=== PATIENT | male | born 1995 | race Caucasian/White ===

== ENCOUNTER 2022-07-03 17:39 | Emergency (ER) | payer BC, SELFPAY ==
--- NOTE | ~2022-07-03 | XR_ITS ---
EXAMINATION: XR FOOT, RIGHT CLINICAL INFORMATION: Right foot injury. COMPARISON: None TECHNIQUE: AP, lateral, and oblique views of the right foot. FINDINGS: The bones and soft tissues are normal. No fracture. Alignment is anatomic. Joint spaces are maintained. XR/XR foot RT min 3V IMPRESSION: Normal right foot.
[2022-07-03 18:27] VITALS: BP 126/67; PULSE 90; RESP 18; TEMP 36.2; O2SAT 98; BMI 29.6
--- NOTE | 2022-07-03 19:22 | ED_ITS ---
HPI - General Adult General Chief complaint: Extremity Injury, Lower Stated complaint: Foot injury Time Seen by Provider: 07/03/22 19:22 Source: patient Mode of arrival: ambulatory Limitations: no limitations History of Present Illness HPI narrative: Patient is a 27 year old male presenting to the emergency department today with right foot pain. Patient states that he was working on a car last night when it fell on his right foot. Patient states that today it is more painful for him to walk on. Patient denies any dizziness, lightheadedness, abdominal pain, nausea, vomiting, fever, chills, blurry vision, double vision, loss of vision, chest pain, difficulty breathing, shortness of breath, back pain, night sweats, pain with urination, increased urinary frequency, increased urinary urgency, blood in hi urine or stool, syncope or a near syncopal episode, bowel incontinence, bladder incontinence, bowel retention, bladder retention, or any other complaints at this time. Onset (ago): day(s) (1) Location: right and lower extremity (foot) Radiation: non-radiation Severity: mild Severity scale (1-10): 2 Quality: aching and dull Pain Consistency: constant Relieving factors: none Exacerbating factors: movement Associated symptoms: denies other symptoms Treatments prior to arrival: none Related Data Allergies Allergy/AdvReac Type Severity Reaction Status Date / Time No Known Allergies Allergy Verified 07/03/22 18:27 Review of Systems Constitutional: Constitutional: Reports no additional constitutional complaints, Denies chills, Denies fever(s) and Denies night sweats Eyes: Eyes: Reports no additional eye complaints, Denies blurry vision, Denies change in vision, Denies diplopia, Denies eye discharge, Denies loss of vision and Denies eye pain ENT: Denies dizziness Cardiovascular: Cardiovascular: Reports no additional cardiovascular complaints, Denies chest pain, Denies lightheadedness, Denies Loss of Consciousness and Denies dyspnea Respiratory: Respiratory: Reports no additional respiratory complaints and Denies dyspnea Gastrointestinal: Gastrointestinal: Reports no additional gastrointestinal complaints, Denies abdominal pain, Denies melena, Denies hematochezia, Denies change in bowel habits and Denies change in stool character Genitourinary: Genitourinary: Reports no additional male genitourinary complaints, Denies hematuria, Denies oliguria, Denies difficulty urinating, Denies dysuria, Denies urinary frequency, Denies urinary hesitancy, Denies urinary incontinence and Denies urinary urgency Musculoskeletal: Musculoskeletal: Reports no additional musculoskeletal complaints, Denies numbness and Denies tingling Comments: right foot pain Neurologic: Denies dizziness, Denies loss of vision, Denies numbness and Denies tingling Psychiatric: Psychiatric: Reports no additional psychiatric complaints Endocrine: Endocrine: Reports no additional endocrine complaints Hematologic/Lymphatic: Hematologic/Lymphatic: Reports no additional hematologic/lymphatic complaints Allergic/Immunologic: Allergic/Immunologic: Reports no additional allergic/immunologic complaints [facility] Past Medical History Attestation statement: The following information was validated with the patient. Source: old records reviewed Social History Social History Advance Directives: No Advance Directives Information Provided: No Physical Exam ED Vital Signs: Vital Signs - 24 hr 07/03/22 18:27 Temperature 97.1 F Pulse Rate 90 Respiratory Rate 18 Blood Pressure 126/67 Pulse Oximetry 98 Oxygen Delivery Method Room Air BMI result Body Mass Index 29.6 Const General: cooperative, no acute distress, alert and awake Nutritional Appearance: well nourished Orientation/consciousness: patient oriented x3 Limitations: no limitations HENMT Head: Yes normal to inspection and Yes atraumatic Ears: hearing grossly normal bilaterally and external ears normal General nose exam: Normal external nose present, no nasal discharge noted and no epistaxis Face and sinus: Yes normal facial exam, No abrasion and No laceration Mouth: Normal oral and palatal mucosa present, no drooling and no muffled voice Eyes General: appearance normal, both eyes and all related structures Periorbital: periorbital findings normal Eyelids: Yes eyelids normal Conjunctivae: conjunctivae normal Pupils: Equal, round and reactive pupils present EOM: EOMs intact bilaterally Neck Neck: Yes normal visual inspection, Yes full ROM and Yes no lymphadenopathy Chest Chest palpation & inspection: normal inspection of the chest Resp Effort & Inspection: normal respiratory effort and able to speak in complete sentences Auscultation: clear to auscultation bilaterally Cardio Rate: regular rate Rhythm: regular rhythm GI Inspection: Yes normal to inspection Neuro General: patient oriented x3 and moves all extremities Cranial nerves: Yes Equal, round and reactive pupils present Cognition (Neuro): normal cognition Motor exam (neuro): 5/5 motor strength present throughout Sensory Exam: Normal double simultaneous stimulation for sensation Coordination: [id number] test normal Extrem General: Yes normal to inspection, Yes full ROM and Yes capillary refill normal Psych Appearance: grossly normal Mental Status: mental status grossly normal Affect: normal affect Attitude: cooperative Thought process: Normal thought process present Thought content: Normal thought content present Insight: Good insight present (Psych) Medical Decision Making MDM Narrative Medical decision making narrative: Patient is a 27 year old male presenting to the emergency department today with right foot pain. Patient's physical exam was unremarkable. Patient's right foot x-ray showed no acute process. I explained my physical exam findings as well as all test results to the patient. I answered all questions asked by the patient. I stressed the importance of the patient taking his medication as prescribed. I stressed the importance of the patient following up with his primary care provider and an orthopedic provider. I stressed the importance of the patient returning to the emergency department immediately if his symptoms were to worsen or if he were to develop any dizziness, shortness of breath, difficulty breathing, chest pain, blurry vision, loss of vision, nausea, vomiting, abdominal pain, fever, chills, back pain, or any other complaints. Patient verbalized agreement and understanding with this treatment plan and discharge. Medical Records Medical records reviewed: Yes I reviewed the patient's medical records. Imaging Data Right foot x-ray: Attestation: I personally reviewed and interpreted this imaging study as follows: My impression: No acute fracture. Radiologist's impression: EXAMINATION: XR FOOT, RIGHT CLINICAL INFORMATION: Right foot injury.? COMPARISON: None? TECHNIQUE: AP, lateral, and oblique views of the right foot. FINDINGS: The bones and soft tissues are normal. No fracture. Alignment is anatomic. Joint spaces are maintained.? XR/XR foot RT min 3V IMPRESSION: Normal right foot. Dictated By: Rahul Estrada MD Signed By: Electronically signed by Rahul Estrada MD 07/03/22 1160 Discharge Plan Discharge Clinical Impression: Acute foot pain Patient Disposition: Home, Self-Care Instructions: Crush Injury (ED) Additional Instructions: Follow up with your primary care provider and an orthopedic provider. Return to the emergency department immediately if your symptoms worsen or if you develop any dizziness, shortness of breath, difficulty breathing, chest pain, blurry vision, loss of vision, nausea, vomiting, abdominal pain, fever, chills, back pain, or any other complaints. Referrals: [facility] Family Medicine [Provider Group] (Call to establish and follow up with a primary care provider. If you already have a primary care provider, please follow up with them. ) [facility] Primary Care, Yoselin [Provider Group] (Call to establish and follow up with a primary care provider. If you already have a primary care provider, please follow up with them. ) [facility] Primary Care,Jakob [Provider Group] (Call to establish and follow up with a primary care provider. If you already have a primary care provider, please follow up with them. ) [facility] Orthopedic Surgeons [Provider Group] (call to establish and follow up with an orthopedic provider. ) Stand Alone Forms: Work/School Release Interventions: ED Discharge Assessment Last Done: 07/03/22 19:32 Discharge Date/Time: 07/03/22 19:41 Print Language: Honduran
== END 2022-07-03 19:41 | disposition home or self-care (01) ==
PROVIDERS: Emergency Provider Student in an Organized Health Care Education/Training Program
DX: M79.671 Pain in right foot (principal)
CPT/HCPCS: 73630; 99282; 99283

== ENCOUNTER 2024-12-03 10:31 | Inpatient (IN) | payer BC, MEDICAID, SELFPAY ==
[2024-12-03 10:37] VITALS: BP 123/81; PULSE 81; RESP 18; TEMP 36.6; O2SAT 100
[2024-12-03 10:40] VITALS: BP 158/102; PULSE 80; RESP 18; O2SAT 98; BMI 22.1
--- NOTE | 2024-12-03 11:12 | PC.NURSE ---
Patient has numerous superficial lacerations on his left forearm. All varying in length and depth. This RN cleaned wounds with normal saline, non-stick dressing applied. Dr. lares at bedside
--- NOTE | 2024-12-03 11:14 | ED.PSYCH ---
HPI - Psych General Chief Complaint: Psychiatric Symptoms Stated Complaint: SEC 12 Time Seen by Provider: 12/03/24 11:08 Source: patient Mode of arrival: EMS Limitations: no limitations History of Present Illness HPI Narrative: This is a very pleasant 29 years old the patient presented complaining of depression and safe inflicted superficial abrasion in the left forearm complaint: feels depressed Onset (ago): hour(s) (2) Duration: constant History of same: Yes Relieving factors: none Exacerbating factors: none Associated psychiatric symptoms: none Associated symptoms: denies other symptoms Related Data Home Medications ?Medication ?Instructions ?Recorded ?Confirmed No Known Home Meds 12/03/24 12/03/24 Allergies Allergy/AdvReac Type Severity Reaction Status Date / Time No Known Allergies Allergy Verified 12/03/24 10:42 Review of Systems Constitutional: Constitutional: Reports no additional constitutional complaints ENT: Reports system reviewed and no additional complaints, except as documented Cardiovascular: Cardiovascular: Reports no additional cardiovascular complaints Musculoskeletal: Musculoskeletal: Reports no additional musculoskeletal complaints PMFSH [facility] Narrative: Depression Social History Social History Alcohol intake: current Alcohol intake frequency: a few times a month Smoked in Last 30 Days: Yes Use of substances other than those prescribed or required for medical reasons: Yes Substance Use Type: Crack/Cocaine Substance Use Frequency: Occasionally Last Used Substance: Days (ago) Any prior treatment program specific to substance use: No Advance Directives: No Advance Directives Information Provided: No Physical Exam Vital Signs: Vital Signs: Last Vital Signs Temp 97.8 F 12/03/24 10:37 Pulse 81 12/03/24 10:37 Resp 18 12/03/24 10:40 BP 123/81 12/03/24 10:37 Pulse Ox 100 12/03/24 10:37 O2 Del Method Room Air 12/03/24 10:37 BMI result Body Mass Index 22.1 No acute distress looks well comforted Const: General: cooperative Nutritional Appearance: well nourished Orientation/consciousness: patient oriented x3 Limitations: no limitations HEENT: Head: Yes normal to inspection Ears: hearing grossly normal bilaterally General nose exam: Normal external nose present Face and sinus: Yes normal facial exam Mouth: Normal oral and palatal mucosa present Throat: Yes posterior oropharynx normal Neck: Neck: Yes normal visual inspection and Yes full ROM Chest: Chest palpation & inspection: normal inspection of the chest Resp: Effort & Inspection: normal respiratory effort Cardio: Jugular venous distension: no JVD Rate: regular rate Rhythm: regular rhythm GI: Inspection: Yes normal to inspection Palpation (GI): Soft to palpation, not firm, nontender and no guarding : General: Yes no CVA tenderness Back/Spine/Pelvis: Back: no CVA tenderness Neuro: General: patient oriented x3 Cranial nerves: Yes CN's II-XII intact bilaterally Extrem: Other: Examination of the left forearm showed the multiple skin abrasion superficial General: Yes full ROM Course Reevaluation(s) Reevaluation #1: Remain calm cooperative stable vital signs, he was seen by the crisis team, patient will be psychiatric inpatient level of care Section 12, bed search started Time: 15:46 Medical Decision Making Medical Decision Making [facility] Narrative: Patient presented to the emergency department with a chief complaint of depression self-inflicted superficial laceration of the left forearm will obtain crisis eval Differential Diagnosis Differential Diagnoses: The differential diagnosis associated with the presentation includes SI/Psychosis Admission/Observation Consideration of admission/observation: Escalation of care including admission/observation considered Lab Data 12/03/24 11:29 12/03/24 11:29 Labs: Lab Results 12/03/24 Range/Units 11:29 WBC 9.0 (4.8-10.8) X10*3/uL RBC 4.75 (4.60-5.80) X10*6/uL Hgb 14.7 (14.0-18.0) g/dl Hct 41.2 L (42.0-52.0) % MCV 86.7 (80.0-98.0) fL MCH 30.9 (27.0-33.0) pg MCHC 35.7 (31.0-36.0) g/dl RDW 12.5 (11.0-16.0) % Plt Count 250 (160-400) X10*3/uL MPV 9.9 (9.4-12.4) fL Immature Gran % (Auto) 0.3 (0.0-0.4) % Neut % (Auto) 48.6 (45-73) % Lymph % (Auto) 38.8 (20-40) % [place] % (Auto) 7.3 (2-11) % Eos % (Auto) 4.3 H (0-4) % Baso % (Auto) 0.7 (0-2) % Lymph # (Auto) 3.5 (1.2-4.9) X10*3/uL [place] # (Auto) 0.7 (0.1-1.2) X10*3/uL Eos # (Auto) 0.4 (0.0-0.4) X10*3/uL Baso # (Auto) 0.1 (0.0-0.2) X10*3/uL Abs Immat Gran (auto) 0.03 (0.00-0.03) X10*3/uL Absolute Neuts (auto) 4.4 (2.0-8.3) x10*3/uL Absolute Nucleated RBC 0.000 (0.0-0.012) X10*3/uL Nucleated RBC % (auto) 0.0 (0.0-0.2) /100WBC Sodium 141 (135-145) mmol/L Potassium 4.0 (3.3-5.1) mmol/L Chloride 107 (96-108) mmol/L Carbon Dioxide 26 (22-29) mmol/L Anion Gap 12 (12-20) BUN 8 L (9-16) mg/dL Creatinine 0.67 (0.5-1.4) mg/dL Estim Creat Clear Calc 156.5 Estimated GFR > 60 Random Glucose 97 (60-115) mg/dL Calcium 9.8 (8.4-10.2) mg/dL Total Bilirubin 0.6 (0.0-1.0) mg/dL AST 28 (5-37) U/L ALT 30 (0-40) U/L Alkaline Phosphatase 95 (39-117) U/L Total Protein 7.5 (6.5-8.0) g/dL Albumin 4.3 (3.5-5.0) g/dL Urine Color Yellow Urine Appearance Clear Urine pH 6.5 (5.0-9.0) Ur Specific [place] 1.015 (1.005-1.025) Urine Protein Negative (Neg-Trace) mg/dL Urine Glucose (UA) Negative (Negative) mg/dL Urine Ketones Trace (Negative) mg/dL Urine Blood Moderate (2+) H (Negative) Urine Nitrite Negative (Negative) Ur Leukocyte Esterase Negative (Negative) Urine RBC 0-2 (0-2) /HPF Urine WBC 0-5 (0-5) /HPF Ur Squamous Epith Cells 0-2 (0-2) /HPF Urine Bacteria None Seen (None Seen) Hyaline Casts 0-2 (0-2) /LPF Urine Opiates Screen Not Detected (Not Detect) Ur Buprenorphine Scrn Not Detected (Not Detect) ng/mL Ur Oxycodone Screen Not Detected (Not Detect) ng/mL Urine Methadone Screen Not Detected (Not Detect) ng/mL Urine Fentanyl Screen Not Detected (Not Detect) Ur Barbiturates Screen Not Detected (Not Detect) Ur Phencyclidine Scrn Not Detected (Not Detect) Ur Amphetamines Screen Not Detected (Not Detect) U Benzodiazepines Scrn Not Detected (Not Detect) Urine Cocaine Screen POSITIVE H (Not Detect) U Marijuana (THC) Screen Not Detected (Not Detect) Ethyl Alcohol 11 mg/dL Discharge Plan Discharge Clinical Impression: Depression Qualifiers: Depression Type: major depressive disorder Major depression recurrence: single episode Active/Remission status: currently active Major depression episode severity: moderate Qualified Code(s): F32.1 - Major depressive disorder, single episode, moderate Patient Disposition: Still a Patient Prescriptions: No Action No Known Home Meds Interventions: [place]-Suicide Risk Severity Scale Last Done: 12/03/24 10:44 Print Language: Faroese
[2024-12-03 11:34] LABS: MANUAL DIFF FLAG NO
[2024-12-03 11:37] LABS: Appearance Urine Clear; Basophils Absolute Auto 0.1 X10*3/uL (0.0-0.2); Basophils Percent Auto 0.7 % (0-2); Color Urine Yellow; Eosinophils Absolute Auto 0.4 X10*3/uL (0.0-0.4); Eosinophils Percent Auto 4.3 % (0-4); Glucose Urine UA Negative (Negative); Hematocrit 41.2 % (42.0-52.0); Hemoglobin 14.7 g/dl (14.0-18.0); Imm Gran Abs Auto 0.03 X10*3/uL (0.00-0.03); Imm Gran Pct Auto 0.3 % (0.0-0.4); Leukocyte Esterase Urine Negative (Negative); Lymphocytes Absolute Auto 3.5 X10*3/uL (1.2-4.9); Lymphocytes Percent Auto 38.8 % (20-40); Mean Corpuscular HGB Conc 35.7 g/dl (31.0-36.0); Mean Corpuscular Hemoglobin 30.9 pg (27.0-33.0); Mean Corpuscular Volume 86.7 fL (80.0-98.0); Mean Platelet Volume 9.9 fL (9.4-12.4); Monocytes Absolute Auto 0.7 X10*3/uL (0.1-1.2); Monocytes Percent Auto 7.3 % (2-11); Neutrophils Absolute Auto 4.4 x10*3/uL (2.0-8.3); Neutrophils Percent Auto 48.6 % (45-73); Nitrite Urine Negative (Negative); PH 6.5 (5.0-9.0); Platelet Count 250 X10*3/uL (160-400); Red Blood Count 4.75 X10*6/uL (4.60-5.80); Red Cell Distribution Width 12.5 % (11.0-16.0); Specific Gravity - Urine 1.015 (1.005-1.025); UMIC TRIGGER UACC YES; Urine Blood Moderate (2+) (Negative); Urine Ketones Trace mg/dL (Negative); Urine Protein Negative (Neg-Trace)
[2024-12-03 11:45] LABS: Bacteria Urine None Seen (None Seen); Hyaline Casts Urine 0-2 /LPF (0-2); RBC Urine 0-2 /HPF (0-2); Squamous Epithelial Cell Urine 0-2 /HPF (0-2); WBC Urine 0-5 /HPF (0-5)
[2024-12-03 11:47] LABS: Amphetamine Screen Urine Not Detected (Not Detect); Barbiturates, Urine Not Detected (Not Detect); Benzodiazepines Screen Urine Not Detected (Not Detect); Buprenorphine Scr Not Detected (Not Detect); Cannabinoid Screen Urine Not Detected (Not Detect); Cocaine Screen Urine POSITIVE (Not Detect); Fentanyl, urine Not Detected (Not Detect); Methadone Screen, Urine Not Detected (Not Detect); Opiate Screen Urine Not Detected (Not Detect); Oxycodone Screen Urine Not Detected (Not Detect); Phencyclidine Screen Urine Not Detected (Not Detect)
[2024-12-03 11:53] LABS: Alanine Aminotransferase 30 U/L (0-40); Albumin Level 4.3 g/dL (3.5-5.0); Alkaline Phosphatase 95 U/L (39-117); Anion Gap 12 (12-20); Aspartate Amino Transferase 28 U/L (5-37); Bilirubin Total 0.6 mg/dL (0.0-1.0); Blood Urea Nitrogen 8 mg/dL (9-16); Calcium 9.8 mg/dL (8.4-10.2); Carbon Dioxide 26 mmol/L (22-29); Chloride 107 mmol/L (96-108); Creatinine Clr Calc Pharmacy 156.5; Estimated Glomerular Filt Rate > 60; Ethanol 11 mg/dL; Glucose Random 97 mg/dL (60-115); Sodium 141 mmol/L (135-145); Total Protein 7.5 g/dL (6.5-8.0)
--- OUTSIDE RECORDS SUMMARY | 2024-12-03 14:05 | XMS_ITS | Clinical Summary ---
Author Organization [facility] Address [address] [place] [id number] Phone Care Team Providers Care Documentation Analyst Name Role Phone Unavailable Primary Care Provider Unavailabl e Immunizations Immunization Administration Dates Next Due DTP 11/13/1996,1995,1995 ,1995 DTaP 5 11/04/1999 Hep B, ped/adol 02/14/1996,1995,1995 Hib (PRP-T) 11/13/1996,1995,1995 ,1995 MMR 11/04/1999,11/13/1996 OPV 11/13/1996,1995,1995 ,1995 Varicella 11/13/1996 Family History Relation Name Status Comments Brother Alive Brother: Alive and well Mother Alive Mother: Alive a nd well,Migranes Sister Alive Sister: Alive a nd well,Asthma Social History Tobacco Use Types Packs/Day Years Used Date Smoking Tobacco: Never Assessed Sex and Gender Information Value Date Recorded Sex Assigned at Not on file Legal Sex Male 4:11 PM EDT Gender Identity Not on file Sexual Orientation Not on file Plan of Treatment Health Maintenance Due Date Last Done Comments Varicella Vaccines (2 of 2 - 2-dose childhood series) 12/02/1999 11/13/1996 DTaP,Tdap,and Td Vaccines (6 - Tdap) 2006 11/04/1999, 11/13/1996, 1995, Additional history exists Influenza Vaccines (#1) 2024 COVID-19 Vaccine ( - season) 2024 Hepatitis B Vaccines Completed 02/14/1996, 1995, 1995 HIB Vaccines Completed 11/13/1996, 03/1996, 1995, Additional history exists IPV Vaccines Completed 11/13/1996, 03/1996, 1995, Additional history exists MMR Vaccines Completed 11/04/1999, 11/13/1996 HPV Vaccines Aged Out No longer eligi ble based on patient's age to complete this topic Hepatitis A Vaccines Aged Out No long er eligible based on patient's age to complete this topic Men B Vaccine Aged Out No longer elig ible based on patient's age to complete this topic Meningococcal Vaccine Aged Out No brigette connie eligible based on patient's age to complete this topic Pneumococcal Vaccine Aged Out No long er eligible based on patient's age to complete this topic
--- OUTSIDE RECORDS SUMMARY | 2024-12-03 14:05 | XMS_ITS | Clinical Summary ---
Author Organization [facility] Address [address] [place] [address] Care Team Providers Care District Associate Judge Name Role Phone Unavailable Primary Care Provider Unavailabl e Social History Tobacco Use Types Packs/Day Years Used Date Smoking Tobacco: Never Assessed Sex and Gender Information Value Date Recorded Sex Assigned at Not on file Legal Sex Male 6:46 AM EST Gender Identity Not on file Sexual Orientation Not on file Plan of Treatment Health Maintenance Due Date Last Done Comments DTaP,Tdap,and Td Vaccines (1 - Tdap) 2014 Hepatitis B Vaccines (1 of 3 - 19+ 3-dose series) 2014 COVID-19 Vaccine (2023-2 5 season) 2024 Influenza Vaccine (#1) 2024 HIB Vaccines Aged Out No longer eligi ble based on patient's age to complete this topic HPV Vaccines Aged Out No longer eligi ble based on patient's age to complete this topic Hepatitis A Vaccines Aged Out No long er eligible based on patient's age to complete this topic IPV Vaccines Aged Out No longer eligi ble based on patient's age to complete this topic MMR Vaccines Aged Out No longer eligi ble based on patient's age to complete this topic Meningococcal ACWY Vaccine Aged Out N o longer eligible based on patient's age to complete this topic Meningococcal B Vacine Aged Out No lo nger eligible based on patient's age to complete this topic Pneumococcal Vaccine: Pediat rics (0 to 5 Years) and At-Risk Patients (6 to 64 Years) Aged Out No longer eligible b ased on patient's age to complete this topic RSV Immunization Patients Un janette 20 months Aged Out No longer eligible b ased on patient's age to complete this topic Varicella Vaccines Aged Out No longer eligible based on patient's age to complete this topic
--- OUTSIDE RECORDS SUMMARY | 2024-12-03 14:05 | XMS_ITS | Clinical Summary ---
Author Organization [facility] Address [address] [place] [address] Care Team Providers Care Employee Wellness/Fitness Coordinator Name Role Phone Unavailable Primary Care Provider Unavailabl e Social History Tobacco Use Types Packs/Day Years Used Date Smoking Tobacco: Never Assessed Sex and Gender Information Value Date Recorded Sex Assigned at Male 09/20/2020 12:20 PM EST Gender Identity Not on file Sexual Orientation Not on file Plan of Treatment Not on file
--- OUTSIDE RECORDS SUMMARY | 2024-12-03 14:05 | XMS_ITS | Encounter Summary ---
Author Organization [facility] Address [address] [place] [address] Phone Care Team Providers Care Sharepoint Application Developer Name Role Phone Unavailable Primary Care Provider Unavailabl e Encounter Details Date Type Department Care Team (Late st Contact Info) Description 05/25/2017 Conversion Encounter [facility] - [address] [id number] Social History Tobacco Use Types Packs/Day Years Used Date Smoking Tobacco: Never Assessed Sex and Gender Information Value Date Recorded Sex Assigned at Not on file Legal Sex Male 4:11 PM EDT Gender Identity Not on file Sexual Orientation Not on file documented as of this encounter Plan of Treatment Not on file documented as of this encounter Visit Diagnoses Not on filedocumented in this encounter
--- NOTE | 2024-12-03 15:51 | MHC.CARE ---
Patient evaluated by the CARE Team, recommended disposition is inpatient psychiatric treatment. ED provider, Dr. Richard updated.
[2024-12-03 22:40] VITALS: BP 112/61; PULSE 86; RESP 18; TEMP 36.5; O2SAT 98
--- NOTE | 2024-12-04 | ECG_ITS ---
Test Reason : CHECK QT Blood Pressure : */* mmHG Vent. Rate : 64 BPM Atrial Rate : 64 BPM P-R Int : 144 ms QRS Dur : 92 ms QT Int : 406 ms P-R-T Axes : 10 4 36 degrees QTcB Int : 418 ms Normal sinus rhythm Normal ECG No previous ECGs available Referred By: Florin Richard Electronically Signed By: Ascencion Snider
[2024-12-04 06:35] VITALS: BP 110/73; PULSE 80; RESP 17; TEMP 36; O2SAT 99
--- NOTE | 2024-12-04 10:51 | PHA.MEDREC ---
Pharmacy Consult ? Medication Reconciliation Pharmacy has completed the medication reconciliation. No Known Home Meds confirmed, claims match.
--- NOTE | 2024-12-04 10:55 | PHA.MEDREC ---
Addendum entered by Giovanni Toscano RPh 12/04/24 11:10: Med rec was reviewed by [facility]. Original Note: Pharmacy Consult ? Medication Reconciliation Pharmacy reviewed med rec done by nursing. No Known Home Meds confirmed, claims match.
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
[2024-12-04 15:11] VITALS: BP 122/70; PULSE 88; RESP 16; TEMP 36.7; O2SAT 94; BMI 27.8
[2024-12-04] MEDS: FLUoxetine HCl Oral Solution 20 MG/5 ML SOLUTION PO (16:21)
[2024-12-04] MEDS: Nicotine Polacrilex 2 MG GUM 4 MG BUCCAL (16:25)
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
[2024-12-04 20:00] VITALS: BP 117/68; PULSE 88; RESP 18; TEMP 36.5; O2SAT 99
[2024-12-04 20:37] LABS: Alanine Aminotransferase 24 U/L (0-40); Albumin Level 4.2 g/dL (3.5-5.0); Alkaline Phosphatase 89 U/L (39-117); Anion Gap 13 (12-20); Aspartate Amino Transferase 19 U/L (5-37); Bilirubin Total 0.2 mg/dL (0.0-1.0); Blood Urea Nitrogen 13 mg/dL (9-16); Calcium 9.6 mg/dL (8.4-10.2); Carbon Dioxide 25 mmol/L (22-29); Chloride 107 mmol/L (96-108); Creatinine Clr Calc Pharmacy 153.2; Estimated Glomerular Filt Rate > 60; Glucose Random 109 mg/dL (60-115); Potassium 3.8 mmol/L (3.3-5.1); Sodium 141 mmol/L (135-145); Total Protein 7.4 g/dL (6.5-8.0)
[2024-12-04] MEDS: traZODone HCL 50 MG TABLET PO (21:58)
[2024-12-04] MEDS: hydrOXYzine HCL 25 MG TABLET PO (21:58)
[2024-12-05 07:00] VITALS: BMI 26.9
[2024-12-05 08:00] VITALS: BP 120/62; PULSE 78; RESP 16; TEMP 36.2; O2SAT 99
[2024-12-05] MEDS: FLUoxetine HCl Oral Solution 20 MG/5 ML SOLUTION PO (08:26)
[2024-12-05 09:12] LABS: Cholesterol 182 mg/dL (<200); HDL Cholesterol 33 mg/dL (>40); LDL Cholesterol Calculated 117 mg/dL (<100); Triglycerides 164 mg/dL (<150)
--- NOTE | 2024-12-05 09:20 | HO.PSYCHPN ---
Subjective Subjective Date of Service: 12/05/24 Reason For Visit: crisis Subjective Notes: 3 Day Interim History: 3 day notice up on 12/09/24. keeping to self. pt reports feeling okay today; denies any side effects from starting Prozac. denies SI/HI/VH/AH. He reports not attending groups since he usually sleeps during the day and is a night person . States he would like referrals to outpatient providers to continue taking medication when discharged; social sciences department chair aware. Medication Compliance: Yes Side effects from medications: No Attending Groups: No Mental Status Exam Mental Status Exam Narrative: Pt is alert and oriented; behavior is cooperative, calm; dressed in casual attire; mood is described as okay ; eye contact appropriate; Speech is normal rate, volume and not pressured; thought process is organized; Thought content is on tx; denies SI/HI/AH/VH. Diagnostics Vital Signs (24Hr): Vital Signs - 24 hr 12/04/24 15:11 12/04/24 20:00 12/05/24 08:00 Temperature 98.1 F 97.7 F 97.1 F Pulse Rate 88 88 78 Respiratory Rate 16 18 16 Blood Pressure 122/70 117/68 120/62 Pulse Oximetry 94 99 99 Oxygen Delivery Method Room Air Room Air Room Air BMI result Body Mass Index 26.9 Labs 12/03/24 11:29 12/04/24 20:17 Labs: Laboratory Results - last 48 hr 12/03/24 12/04/24 12/05/24 11:29 20:17 08:35 WBC 9.0 RBC 4.75 Hgb 14.7 Hct 41.2 L MCV 86.7 MCH 30.9 MCHC 35.7 RDW 12.5 Plt Count 250 MPV 9.9 Immature Gran % (Auto) 0.3 Neut % (Auto) 48.6 Lymph % (Auto) 38.8 [place] % (Auto) 7.3 Eos % (Auto) 4.3 H Baso % (Auto) 0.7 Lymph # (Auto) 3.5 [place] # (Auto) 0.7 Eos # (Auto) 0.4 Baso # (Auto) 0.1 Abs Immat Gran (auto) 0.03 Absolute Neuts (auto) 4.4 Absolute Nucleated RBC 0.000 Nucleated RBC % (auto) 0.0 Sodium 141 141 Potassium 4.0 3.8 Chloride 107 107 Carbon Dioxide 26 25 Anion Gap 12 13 BUN 8 L 13 Creatinine 0.67 0.77 Estim Creat Clear Calc 156.5 153.2 Estimated GFR > 60 > 60 Random Glucose 97 109 Calcium 9.8 9.6 Total Bilirubin 0.6 0.2 AST 28 19 ALT 30 24 Alkaline Phosphatase 95 89 Total Protein 7.5 7.4 Albumin 4.3 4.2 Triglycerides 164 H Cholesterol 182 LDL Cholesterol, Calc 117 H HDL Cholesterol 33 L Urine Color Yellow Urine Appearance Clear Urine pH 6.5 Ur Specific [place] 1.015 Urine Protein Negative Urine Glucose (UA) Negative Urine Ketones Trace Urine Blood Moderate (2+) H Urine Nitrite Negative Ur Leukocyte Esterase Negative Urine RBC 0-2 Urine WBC 0-5 Ur Squamous Epith Cells 0-2 Urine Bacteria None Seen Hyaline Casts 0-2 Urine Opiates Screen Not Detected Ur Buprenorphine Scrn Not Detected Ur Oxycodone Screen Not Detected Urine Methadone Screen Not Detected Urine Fentanyl Screen Not Detected Ur Barbiturates Screen Not Detected Ur Phencyclidine Scrn Not Detected Ur Amphetamines Screen Not Detected U Benzodiazepines Scrn Not Detected Urine Cocaine Screen POSITIVE H U Marijuana (THC) Screen Not Detected Ethyl Alcohol 11 Medications Medications Current Medications Acetaminophen (Acetaminophen 325 Mg Tablet) 650 mg PO Q6H PRN PRN Reason: Headache/Pain, Scale 1-10 Al Hydroxide/Mg Hydroxide (Magnesium Hydrox/Alum Hydrox 30 Ml Oral.Susp) 30 ml PO Q6H PRN PRN Reason: Heartburn/Nausea Fluoxetine HCl (Fluoxetine Hcl Oral Solution 20 Mg/5 Ml Solution) 20 mg PO DAILY [facility] Last Admin: 12/05/24 08:26 Dose: 20 mg Hydroxyzine HCl (Hydroxyzine Hcl 25 Mg Tablet) 25 mg PO Q6H PRN PRN Reason: mild anxiety Last Admin: 12/04/24 21:58 Dose: 25 mg Magnesium Hydroxide (Milk Of Magnesia 30 Ml Oral.Susp) 30 ml PO DAILY PRN PRN Reason: Constipation Nicotine (Nicotine 21 Mg Patch.Td24) 21 mg TRANSDERMA DAILY [facility] Last Admin: 12/05/24 08:28 Dose: Not Given Nicotine Polacrilex (Nicotine Polacrilex 2 Mg Gum) 4 mg BUCCAL Q2H PRN PRN Reason: Nicotine Cravings Last Admin: 12/04/24 16:25 Dose: 4 mg Quetiapine Fumarate (Quetiapine Fumarate 25 Mg Tablet) 25 mg PO BID PRN PRN Reason: anxiety/agitation Trazodone HCl (Trazodone Hcl 50 Mg Tablet) 50 mg PO BEDTIME MRX1 PRN PRN Reason: Insomnia Last Admin: 12/04/24 21:58 Dose: 50 mg Allergies Allergies Allergy/AdvReac Type Severity Reaction Status Date / Time No Known Allergies Allergy Verified 12/03/24 10:42 Assessment & Plan Assessment & Plan (1) MDD (major depressive disorder), recurrent episode: Status: Acute Code(s): F33.9 - Major depressive disorder, recurrent, unspecified (2) PTSD (post-traumatic stress disorder): Status: Acute Code(s): F43.10 - Post-traumatic stress disorder, unspecified (3) Alcohol use disorder: Status: Acute Code(s): F10.90 - Alcohol use, unspecified, uncomplicated (4) Cocaine use disorder: Status: Acute Code(s): F14.10 - Cocaine abuse, uncomplicated Plan Patient is a 29-year-old male with history of MDD, PTSD, alcohol use disorder and cocaine use disorder who was brought to ER by ambulance due to suicidal ideation secondary to increased life stressors. Plan: CV 15 minute safety checks Obtain collateral Encourage groups Referral to outpatient prescriber and therapist Start: Prozac 20mg PO daily Seroquel 25mg PO BID PRN Discharge planning 12/05: 3 day notice up on 12/09/24. keeping to self. pt reports feeling okay today; denies any side effects from starting Prozac. denies SI/HI/VH/AH. He reports not attending groups since he usually sleeps during the day and is a night person . States he would like referrals to outpatient providers to continue taking medication when discharged; social sciences department chair aware. Continue current tx plan. Patient educated on: diagnosis, medication risk/benefits and therapeutic strategies Reason for continued inpatient stay Substantial Risk for: med/psych decompensation Time Spent With Patient Time: Total time managing care of this patient today _20___ minutes.
--- NOTE | 2024-12-05 13:02 | MHC.RECOVRN ---
AUDIT-C Brief Intervention Pt had positive screen for unhealthy alcohol use on admission. Attempted to meet with pt to discuss alcohol use and offer resources, pt declined.
[2024-12-05 20:00] VITALS: BP 116/64; PULSE 79; RESP 16; TEMP 36.4; O2SAT 97
[2024-12-05] MEDS: hydrOXYzine HCL 25 MG TABLET PO (22:01)
[2024-12-05] MEDS: traZODone HCL 50 MG TABLET PO (22:01)
[2024-12-06 08:00] VITALS: BP 117/67; PULSE 68; RESP 20; TEMP 36.1; O2SAT 99
[2024-12-06] MEDS: FLUoxetine HCl Oral Solution 20 MG/5 ML SOLUTION PO (08:46)
--- NOTE | 2024-12-06 09:07 | P.PNPSI_ITS ---
Subjective Subjective Date of Service: 12/06/24 Reason For Visit: crisis Subjective Notes: 3 Day Interim History: 3 day notice up on 12/09/24. Napping most of the day. pt reports feeling good today; pt stated, I'm just waiting to leave on Monday. I feel fine. I'm not anxious or depressed . denies SI/HI/VH/AH. Medication Compliance: Yes Side effects from medications: No Attending Groups: No Mental Status Exam Mental Status Exam Narrative: Pt is alert and oriented; behavior is cooperative, calm; dressed in casual attire; mood is described as good ; eye contact appropriate; Speech is normal rate, volume and not pressured; thought process is organized; Thought content is on discharge; denies SI/HI/AH/VH. Diagnostics Vital Signs (24Hr): Vital Signs - 24 hr 12/05/24 20:00 12/06/24 08:00 Temperature 97.5 F 96.9 F Pulse Rate 79 68 Respiratory Rate 16 20 Blood Pressure 116/64 117/67 Pulse Oximetry 97 99 Oxygen Delivery Method Room Air Room Air BMI result Body Mass Index 26.9 Labs 12/03/24 11:29 12/04/24 20:17 Labs: Laboratory Results - last 48 hr 12/04/24 12/05/24 20:17 08:35 Sodium 141 Potassium 3.8 Chloride 107 Carbon Dioxide 25 Anion Gap 13 BUN 13 Creatinine 0.77 Estim Creat Clear Calc 153.2 Estimated GFR > 60 Random Glucose 109 Calcium 9.6 Total Bilirubin 0.2 AST 19 ALT 24 Alkaline Phosphatase 89 Total Protein 7.4 Albumin 4.2 Triglycerides 164 H Cholesterol 182 LDL Cholesterol, Calc 117 H HDL Cholesterol 33 L Medications Medications Current Medications Acetaminophen (Acetaminophen 325 Mg Tablet) 650 mg PO Q6H PRN PRN Reason: Headache/Pain, Scale 1-10 Al Hydroxide/Mg Hydroxide (Magnesium Hydrox/Alum Hydrox 30 Ml Oral.Susp) 30 ml PO Q6H PRN PRN Reason: Heartburn/Nausea Fluoxetine HCl (Fluoxetine Hcl Oral Solution 20 Mg/5 Ml Solution) 20 mg PO DAILY [facility] Last Admin: 12/06/24 08:46 Dose: 20 mg Hydroxyzine HCl (Hydroxyzine Hcl 25 Mg Tablet) 25 mg PO Q6H PRN PRN Reason: mild anxiety Last Admin: 12/05/24 22:01 Dose: 25 mg Magnesium Hydroxide (Milk Of Magnesia 30 Ml Oral.Susp) 30 ml PO DAILY PRN PRN Reason: Constipation Nicotine (Nicotine 21 Mg Patch.Td24) 21 mg TRANSDERMA DAILY [facility] Last Admin: 12/06/24 08:47 Dose: Not Given Nicotine Polacrilex (Nicotine Polacrilex 2 Mg Gum) 4 mg BUCCAL Q2H PRN PRN Reason: Nicotine Cravings Last Admin: 12/04/24 16:25 Dose: 4 mg Quetiapine Fumarate (Quetiapine Fumarate 25 Mg Tablet) 25 mg PO BID PRN PRN Reason: anxiety/agitation Trazodone HCl (Trazodone Hcl 50 Mg Tablet) 50 mg PO BEDTIME MRX1 PRN PRN Reason: Insomnia Last Admin: 12/05/24 22:01 Dose: 50 mg Allergies Allergies Allergy/AdvReac Type Severity Reaction Status Date / Time No Known Allergies Allergy Verified 12/03/24 10:42 Assessment & Plan Assessment & Plan (1) MDD (major depressive disorder), recurrent episode: Status: Acute Code(s): F33.9 - Major depressive disorder, recurrent, unspecified (2) PTSD (post-traumatic stress disorder): Status: Acute Code(s): F43.10 - Post-traumatic stress disorder, unspecified (3) Alcohol use disorder: Status: Acute Code(s): F10.90 - Alcohol use, unspecified, uncomplicated (4) Cocaine use disorder: Status: Acute Code(s): F14.10 - Cocaine abuse, uncomplicated Plan Patient is a 29-year-old male with history of MDD, PTSD, alcohol use disorder and cocaine use disorder who was brought to ER by ambulance due to suicidal ideation secondary to increased life stressors. Plan: CV 15 minute safety checks Obtain collateral Encourage groups Referral to outpatient prescriber and therapist Start: Prozac 20mg PO daily Seroquel 25mg PO BID PRN Discharge planning 12/05: 3 day notice up on 12/09/24. keeping to self. pt reports feeling okay today; denies any side effects from starting Prozac. denies SI/HI/VH/AH. He reports not attending groups since he usually sleeps during the day and is a night person . States he would like referrals to outpatient providers to continue taking medication when discharged; executive secretary social welfare aware. Continue current tx plan. 12/06: Napping most of the day. pt reports feeling good today; pt stated, I'm just waiting to leave on Monday. I feel fine. I'm not anxious or depressed . denies SI/HI/VH/AH. Continue current tx plan. Patient educated on: diagnosis and medication risk/benefits Reason for continued inpatient stay Substantial Risk for: med/psych decompensation Time Spent With Patient Time: Total time managing care of this patient today _20___ minutes.
[2024-12-06 20:00] VITALS: BP 117/70; PULSE 80; RESP 16; TEMP 36.7; O2SAT 97
[2024-12-06] MEDS: traZODone HCL 50 MG TABLET PO (21:09)
[2024-12-06] MEDS: hydrOXYzine HCL 25 MG TABLET PO (21:09)
[2024-12-07 07:20] VITALS: BP 108/69; PULSE 84; RESP 14; TEMP 36.3; O2SAT 97
[2024-12-07 08:00] VITALS: BP 108/69; PULSE 84; RESP 14; TEMP 36.3; O2SAT 97
[2024-12-07] MEDS: FLUoxetine HCl Oral Solution 20 MG/5 ML SOLUTION PO (08:17)
--- NOTE | 2024-12-07 09:15 | P.PNPSI_ITS ---
Subjective Subjective Date of Service: 12/07/24 Reason For Visit: crisis Subjective Notes: Section 12B Interim History: The nursing staff reported the patient had been flat, withdrawn he does not attend to any groups, he had been compliant with treatment. In the evening he was seen with a brighter affect more engageable. He require p.r.n. trazodone and Atarax at night slept 8 hours. On interview the patient reports that he feels dysphoric, no new symptoms. I encouraged to continue compliance with treatment. Mental Status Exam Mental Status Exam Patient Appearance: Appropriate Patient Orientation: Person and Situation Level of Consciousness: Awake Patient Behavior: Guarded and Passive Mood Description: Withdrawn Affect Description: Constricted Ability to Follow Directions: Good Speech Pattern: Clear Hallucinations: None Delusions: Not Present Thought Process: Distracted and Slowed Thinking Thought Content: positive for [place] and positive for Poverty of Content Judgement: Fair Diagnostics Vital Signs (24Hr): Vital Signs - 24 hr 12/06/24 20:00 12/07/24 07:20 12/07/24 08:00 Temperature 98.1 F 97.4 F 97.4 F Pulse Rate 80 84 84 Respiratory Rate 16 14 14 Blood Pressure 117/70 108/69 108/69 Pulse Oximetry 97 97 97 Oxygen Delivery Method Room Air Room Air Room Air BMI result Body Mass Index 26.9 Labs 12/03/24 11:29 12/04/24 20:17 Medications Medications Current Medications Acetaminophen (Acetaminophen 325 Mg Tablet) 650 mg PO Q6H PRN PRN Reason: Headache/Pain, Scale 1-10 Al Hydroxide/Mg Hydroxide (Magnesium Hydrox/Alum Hydrox 30 Ml Oral.Susp) 30 ml PO Q6H PRN PRN Reason: Heartburn/Nausea Fluoxetine HCl (Fluoxetine Hcl Oral Solution 20 Mg/5 Ml Solution) 20 mg PO DAILY [facility] Last Admin: 12/07/24 08:17 Dose: 20 mg Hydroxyzine HCl (Hydroxyzine Hcl 25 Mg Tablet) 25 mg PO Q6H PRN PRN Reason: mild anxiety Last Admin: 12/06/24 21:09 Dose: 25 mg Magnesium Hydroxide (Milk Of Magnesia 30 Ml Oral.Susp) 30 ml PO DAILY PRN PRN Reason: Constipation Nicotine Polacrilex (Nicotine Polacrilex 2 Mg Gum) 4 mg BUCCAL Q2H PRN PRN Reason: Nicotine Cravings Last Admin: 12/04/24 16:25 Dose: 4 mg Quetiapine Fumarate (Quetiapine Fumarate 25 Mg Tablet) 25 mg PO BID PRN PRN Reason: anxiety/agitation Trazodone HCl (Trazodone Hcl 50 Mg Tablet) 50 mg PO BEDTIME MRX1 PRN PRN Reason: Insomnia Last Admin: 12/06/24 21:09 Dose: 50 mg Allergies Allergies Allergy/AdvReac Type Severity Reaction Status Date / Time No Known Allergies Allergy Verified 12/03/24 10:42 Assessment & Plan Assessment & Plan (1) MDD (major depressive disorder), recurrent episode: Status: Acute Code(s): F33.9 - Major depressive disorder, recurrent, unspecified (2) PTSD (post-traumatic stress disorder): Status: Acute Code(s): F43.10 - Post-traumatic stress disorder, unspecified (3) Alcohol use disorder: Status: Acute Code(s): F10.90 - Alcohol use, unspecified, uncomplicated (4) Cocaine use disorder: Status: Acute Code(s): F14.10 - Cocaine abuse, uncomplicated Plan Patient is a 29-year-old male with history of MDD, PTSD, alcohol use disorder and cocaine use disorder who was brought to ER by ambulance due to suicidal ideation secondary to increased life stressors. Plan: CV 15 minute safety checks Obtain collateral Encourage groups Referral to outpatient prescriber and therapist Start: Prozac 20mg PO daily Seroquel 25mg PO BID PRN Discharge planning 12/05: 3 day notice up on 12/09/24. keeping to self. pt reports feeling okay today; denies any side effects from starting Prozac. denies SI/HI/VH/AH. He reports not attending groups since he usually sleeps during the day and is a night person . States he would like referrals to outpatient providers to continue taking medication when discharged; social sciences professor aware. Continue current tx plan. 12/06: Napping most of the day. pt reports feeling good today; pt stated, I'm just waiting to leave on Monday. I feel fine. I'm not anxious or depressed . denies SI/HI/VH/AH. Continue current tx plan. 12/07 the patient reports that he wants to be discharged next Monday, keep same treatment. Reason for continued inpatient stay Substantial Risk for: inability to function, rapid decompensation and med/psych decompensation Time Spent With Patient Time: Total time managing care of this patient today __20__ minutes.
[2024-12-07 20:00] VITALS: BP 130/96; PULSE 113; RESP 15; TEMP 36.3; O2SAT 96
[2024-12-07] MEDS: traZODone HCL 50 MG TABLET PO (20:50)
[2024-12-07] MEDS: hydrOXYzine HCL 25 MG TABLET PO (20:50)
[2024-12-08 08:00] VITALS: BP 110/68; PULSE 89; RESP 16; TEMP 36.6; O2SAT 96
[2024-12-08] MEDS: FLUoxetine HCl Oral Solution 20 MG/5 ML SOLUTION PO (08:18)
--- NOTE | 2024-12-08 09:09 | HO.PSYCHPN ---
Subjective Subjective Date of Service: 12/08/24 Reason For Visit: crisis Subjective Notes: Conditional Voluntary Interim History: The nursing staff reported the patient had been withdrawn guarded but compliant with medications. He had been more visible in the unit and he was seen watching TV slept 8 hours. On interview the patient denies new symptoms. Reports improvement. Mental Status Exam Mental Status Exam Patient Appearance: Appropriate Patient Orientation: Person and Situation Level of Consciousness: Awake and Appropriate Patient Behavior: Guarded and Passive Mood Description: Withdrawn Affect Description: Constricted Patient Cognition Impaired: Yes Ability to Follow Directions: Good Speech Pattern: Clear Hallucinations: None Delusions: Not Present Thought Process: Distracted and Slowed Thinking Thought Content: positive for [place] and positive for Poverty of Content Judgement: Fair Diagnostics Vital Signs (24Hr): Vital Signs - 24 hr 12/07/24 20:00 12/08/24 08:00 Temperature 97.3 F 97.9 F Pulse Rate 113 H 89 Respiratory Rate 15 16 Blood Pressure 130/96 H 110/68 Pulse Oximetry 96 96 Oxygen Delivery Method Room Air Room Air BMI result Body Mass Index 26.9 Labs 12/03/24 11:29 12/04/24 20:17 Medications Medications Current Medications Acetaminophen (Acetaminophen 325 Mg Tablet) 650 mg PO Q6H PRN PRN Reason: Headache/Pain, Scale 1-10 Al Hydroxide/Mg Hydroxide (Magnesium Hydrox/Alum Hydrox 30 Ml Oral.Susp) 30 ml PO Q6H PRN PRN Reason: Heartburn/Nausea Fluoxetine HCl (Fluoxetine Hcl Oral Solution 20 Mg/5 Ml Solution) 20 mg PO DAILY LENY Last Admin: 12/08/24 08:18 Dose: 20 mg Hydroxyzine HCl (Hydroxyzine Hcl 25 Mg Tablet) 25 mg PO Q6H PRN PRN Reason: mild anxiety Last Admin: 12/07/24 20:50 Dose: 25 mg Magnesium Hydroxide (Milk Of Magnesia 30 Ml Oral.Susp) 30 ml PO DAILY PRN PRN Reason: Constipation Nicotine Polacrilex (Nicotine Polacrilex 2 Mg Gum) 4 mg BUCCAL Q2H PRN PRN Reason: Nicotine Cravings Last Admin: 12/04/24 16:25 Dose: 4 mg Quetiapine Fumarate (Quetiapine Fumarate 25 Mg Tablet) 25 mg PO BID PRN PRN Reason: anxiety/agitation Trazodone HCl (Trazodone Hcl 50 Mg Tablet) 50 mg PO BEDTIME MRX1 PRN PRN Reason: Insomnia Last Admin: 12/07/24 20:50 Dose: 50 mg Allergies Allergies Allergy/AdvReac Type Severity Reaction Status Date / Time No Known Allergies Allergy Verified 12/03/24 10:42 Assessment & Plan Assessment & Plan (1) MDD (major depressive disorder), recurrent episode: Status: Acute Code(s): F33.9 - Major depressive disorder, recurrent, unspecified (2) PTSD (post-traumatic stress disorder): Status: Acute Code(s): F43.10 - Post-traumatic stress disorder, unspecified (3) Alcohol use disorder: Status: Acute Code(s): F10.90 - Alcohol use, unspecified, uncomplicated (4) Cocaine use disorder: Status: Acute Code(s): F14.10 - Cocaine abuse, uncomplicated Plan Patient is a 29-year-old male with history of MDD, PTSD, alcohol use disorder and cocaine use disorder who was brought to ER by ambulance due to suicidal ideation secondary to increased life stressors. Plan: CV 15 minute safety checks Obtain collateral Encourage groups Referral to outpatient prescriber and therapist Start: Prozac 20mg PO daily Seroquel 25mg PO BID PRN Discharge planning 12/05: 3 day notice up on 12/09/24. keeping to self. pt reports feeling okay today; denies any side effects from starting Prozac. denies SI/HI/VH/AH. He reports not attending groups since he usually sleeps during the day and is a night person . States he would like referrals to outpatient providers to continue taking medication when discharged; clinical social work therapist aware. Continue current tx plan. 12/06: Napping most of the day. pt reports feeling good today; pt stated, I'm just waiting to leave on Monday. I feel fine. I'm not anxious or depressed . denies SI/HI/VH/AH. Continue current tx plan. 12/07 the patient reports that he wants to be discharged next Monday, keep same treatment. 12/08 keep same treatment. Reason for continued inpatient stay Substantial Risk for: inability to function, rapid decompensation and med/psych decompensation Time Spent With Patient Time: Total time managing care of this patient today __20__ minutes.
[2024-12-08] MEDS: Nicotine Polacrilex 2 MG GUM 4 MG BUCCAL (14:11)
[2024-12-08 20:00] VITALS: BP 107/67; PULSE 110; RESP 16; TEMP 36.3; O2SAT 95
[2024-12-08] MEDS: hydrOXYzine HCL 25 MG TABLET PO (20:09)
[2024-12-08] MEDS: traZODone HCL 50 MG TABLET PO (20:09)
[2024-12-09 07:40] VITALS: BP 114/62; PULSE 93; RESP 12; TEMP 36.6; O2SAT 96
[2024-12-09] MEDS: FLUoxetine HCl Oral Solution 20 MG/5 ML SOLUTION PO (08:10)
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
[2024-12-09] MEDS: Naloxone HCl Nasal TAKE HOME 4 MG SPRAY 8 MG NOSTRILALT (09:45)
--- NOTE | 2024-12-09 10:44 | PC.NURSE ---
Patient easily engaged. Full range in affect. Reports feeling ready for discharge. Mood improved, denies SI/HI plan or intent. Denies self harming ideations. Denies perceptual disturbances, no overt psychosis or expressed delusions. Planning to get picked up by friend, go to sisters. Discharge paperwork reviewed with patient reports understanding. Prescription reviewed with patient, reports understanding. Narcan given to patient for take home, instruction provided, reports understanding. Follow up appointment for walk in reviewed, reports understanding. Information provided to obtain PCP through [facility] provided. All belongings taken with patient. Crisis numbers provided.
== END 2024-12-09 09:50 | disposition home or self-care (01) | DRG 751 ==
LOC: HO.ED 12-04 11:22 → HO.PADLT16 12-04 13:48
PROVIDERS: Admitting Provider Registered Nurse; Emergency Provider Emergency Medicine; Responsible Provider Registered Nurse; Visit Provider Psychiatry & Neurology Psychiatry
DX: F33.9 Major depressive disorder, recurrent, unspecified (principal); F10.90 Alcohol use, unspecified, uncomplicated; F17.210 Nicotine dependence, cigarettes, uncomplicated; Z71.6 Tobacco abuse counseling; F43.10 Post-traumatic stress disorder, unspecified; F14.10 Cocaine abuse, uncomplicated
CPT/HCPCS: 36415; 80053; 80061; 80307; 81001; 85025; 93005; 99285; S9485

== ENCOUNTER → 2024-12-04 12:42 | Outpatient (BNV) | payer BC, MEDICAID, SELFPAY | PROVIDERS: Admitting Provider Registered Nurse; Emergency Provider Emergency Medicine; Responsible Provider Registered Nurse; Visit Provider Internal Medicine Cardiovascular Disease | DX: I45.9 Conduction disorder, unspecified (principal) | CPT/HCPCS: 93010 ==

== ENCOUNTER → 2024-12-04 12:56 | Outpatient (BNV) | payer OTHER, SELFPAY | PROVIDERS: Admitting Provider Registered Nurse; Emergency Provider Emergency Medicine; Responsible Provider Registered Nurse; Visit Provider Registered Nurse | DX: F33.2 Major depressive disorder, recurrent severe without psychotic features (principal); F14.10 Cocaine abuse, uncomplicated; F10.90 Alcohol use, unspecified, uncomplicated; F43.11 Post-traumatic stress disorder, acute | CPT/HCPCS: 99231; 99233 ==